=== PATIENT | female | born 1950 | race Caucasian/White ===

== ENCOUNTER 2020-05-02 08:01 | Outpatient (CLI) | payer MEDICARE, SELFPAY ==
--- NOTE | 2020-05-02 08:08 | MM_ITS ---
WS: [id number] BILATERAL DIGITAL SCREENING MAMMOGRAPHY WITH CAD CLINICAL INFORMATION: SCREENING HISTORY: Screening mammogram. No current complaints. COMPARISON: December 29, 2018 TECHNIQUE: Bilateral CC and MLO views. FINDINGS: The breasts are composed of heterogeneous fibroglandular density tissue, which can limit the detectio n of small underlying mass lesions. No suspicious mass, asymmetry, calcifications, or architectural d istortion. No evidence of malignancy. MM/[id number] IMPRESSION: BI-RADS: 1-Negative FOLLOW UP: 1 Year Follow-up Recommend return to annual screening mammography.
== END 2020-05-02 08:02 | disposition home or self-care (01) ==
LOC: RADSHAW 08:05
PROVIDERS: PCP Family Medicine; Visit Provider Family Medicine
DX: Z12.31 Encounter for screening mammogram for malignant neoplasm of breast (principal)
CPT/HCPCS: 77067

== ENCOUNTER 2021-05-03 14:27 | Outpatient (CLI) | payer MEDICARE, SELFPAY ==
--- NOTE | 2021-05-03 14:34 | MM_ITS ---
WS: [id number] SCREENING DIGITAL MAMMOGRAM WITH CAD HISTORY: SCREENING COMPARISON: 12/29/2018 05/02/2020 Bilateral CC and MLO views submitted. Computer aided detection analyzed. Breast composition: There are scattered areas of fibroglandular density. No suspicious masses, microc alcifications or architectural distortion. MM/[id number] IMPRESSION: BI-RADS: 1-Negative FOLLOW UP: 1 Year Follow-up
== END 2021-05-03 14:28 | disposition home or self-care (01) ==
LOC: RADSHAW 14:33
PROVIDERS: PCP Family Medicine; Visit Provider Family Medicine
DX: Z12.31 Encounter for screening mammogram for malignant neoplasm of breast (principal)
CPT/HCPCS: 77067

== ENCOUNTER 2021-05-13 15:38 | Emergency (ER) | payer MEDICARE, SELFPAY ==
[2021-05-13 15:47] VITALS: BP 156/90; PULSE 79; RESP 16; TEMP 36.7; O2SAT 92; BMI 24.2
--- NOTE | 2021-05-13 15:52 | ED_ITS ---
HPI - Dizziness General: Chief Complaint: Dizziness Stated Complaint: dizzy/vomiting Time Seen by Provider: 05/13/21 15:45 History of Present Illness: HPI Narrative: 70-year-old female presents emergency room complaining of onset of dizziness nausea and vomiting she been working outside for most of the day. No chest pain no shortness of breath denies dysuria urgency or frequency or abdominal pain. MD elicited complaint: dizziness and lightheadedness Onset (ago): hour(s) Timing: sudden onset Severity: mild Description: lightheadedness and off-balance History of similar symptoms: Yes Exacerbating factors: change in body position Relieving factors: remaining still, rest and lying down Associated symptoms: Reports malaise, nausea and weakness; Denies chest pain, chills, cough, diaphoresis, ear discharge, ear pressure, fevers/chills, headache(s), nasal congestion, palpitations, rash, short of breath, syncope, tinnitus or vomiting Associated neuro symptoms: Deny confusion, difficulty speaking, dysphagia, diplopia, extremity weakness, facial numbness, facial weakness, gait changes, numbness in extremities or visual changes Review of Systems Const: Reports: malaise; Denies: chills or diaphoresis ENMT: Denies: ear discharge, tinnitus or nasal congestion Card: Denies: chest pain, palpitations or syncope Resp: Denies: dyspnea, productive cough or non-productive cough GI: Reports: nausea; Denies: vomiting or dysphagia : Denies: flank pain, difficulty voiding, dysuria, urinary frequency or urinary urgency Skin/Breast: Denies: rash or pruritus Neuro: Denies: headache(s), numbness in extremities or confusion Physical Exam Const: COMMON NORMALS: no acute distress GENERAL APPEARANCE: cooperative and comfortable ORIENTATION/CONSCIOUSNESS: Yes awake, Yes oriented to person, Yes oriented to place and Yes oriented to time HENMT: COMMON NORMALS: normocephalic, atraumatic and hearing grossly normal bilaterally HEAD & SCALP: normocephalic and atraumatic Neck/C-Spine: COMMON NORMALS: no JVD Resp: COMMON NORMALS: normal respiratory effort, No retractions, No use of accessory muscles and clear to auscultation bilaterally AUSCULTATION: clear to auscultation bilaterally Cardio: COMMON NORMALS: no JVD, regular rate, regular rhythm and No murmurs present (Cardio) RATE: regular rate RHYTHM: regular rhythm GI: COMMON NORMALS: Soft to palpation and No hepatosplenomegaly present AUSCULTATION: Yes normoactive bowel sounds PALPATION: Yes Soft to palpation, No Tenderness to palpation present (GI), No Guarding due to palpation present (GI) and Yes No hepatosplenomegaly present Extremity: COMMON NORMALS: normal to inspection, capillary refill normal, no clubbing, cyanosis or edema, no calf tenderness and no pedal edema Neuro: SENSORIUM/ORIENTATION: Yes oriented to person, Yes oriented to place and Yes oriented to time Skin: COMMON NORMALS: no rashes or lesions noted GENERAL SKIN EXAM: no rashes or lesions noted Course Vital Signs: Vital signs: Vital Signs Temperature 98.0 F 05/13/21 15:47 Pulse Rate 81 05/13/21 18:15 Respiratory Rate 14 05/13/21 18:15 Blood Pressure 173/88 05/13/21 18:15 Pulse Oximetry 95 05/13/21 18:15 MDM - Dizziness MDM Narrative: Medical decision making narrative: Mild rhabdomyolysis with slightly elevated CPK. Encourage fluid intake rest. Reviewed labs with the patient. She is not on any diuretics at this point. She has any worsening or change symptoms return avoid heat for the next several days avoid excessive exertion. Return if she has further problems or chest pain. Lab Data: Labs: Lab Results 3 05/13/21 05/13/21 05/13/21 Range/Units 16:21 16:21 16:36 WBC 7.2 (4.0-10.0) 10^3/ uL RBC 5.20 (4.1-5.3) 10^6/u L Hgb 14.4 (11.5-15.3) g/dL Hct 44.0 (37.0-47.0) % MCV 84.6 (81-99) fl MCH 27.7 L (28.0-34.0) pg MCHC 32.7 (30.0-36.0) g/dL RDW 12.8 (12.1-15.1) % Plt Count 319 (130-400) 10^3/c mm MPV 9.7 (7.4-10.4) fL Neut % (Auto) 78.8 % Lymph % (Auto) 11.8 % [place] % (Auto) 7.0 % Eos % (Auto) 1.3 % Baso % (Auto) 0.8 % Neut # (Auto) 5.67 (1.8-7.7) 10^3/u L Lymph # (Auto) 0.9 (0.8-4.8) 10^3/u L [place] # (Auto) 0.5 (0.2-0.9) 10^3/u L Eos # (Auto) 0.1 (0.0-0.8) 10^3/u L Baso # (Auto) 0.1 (0.0-0.1) 10^3/u L Nucleated RBC % (a uto) 0 % Nucleated RBCs # 0.0 /100WBC Sodium 142 (136-145) mmol/L Potassium 4.1 (3.5-5.1) mmol/L Chloride 105 (98-107) mmol/L Carbon Dioxide 26 (22-29) mmol/L Anion Gap 15.1 (5-19) BUN 25 H (8-23) mg/dL Creatinine 0.7 (0.5-0.9) mg/dL GFR Calculation Not Reportable Glucose 100 (65-115) mg/dL Calculated Osmolal ity 298 H (285-295) mOsm/k g Calcium 9.0 (8.5-10.5) mg/dL Total Bilirubin 0.2 (0.15-1.2) mg/dL AST 20 (0-32) U/L ALT 21 (0-33) U/L Alkaline Phosphata se 74 (35-105) IU/L Creatine Kinase 478 H* (26-192) U/L Total Protein 6.3 L (6.6-8.7) g/dL Albumin 4.4 (3.5-5.2) g/dL Globulin 1.9 (1.3-4.6) g/dL Lipase 44 (13-60) U/L Urine Color Yellow (Yellow) Urine Appearance Clear (CLEAR) Urine pH 5 (5-7) Ur Specific Gravit y 1.025 (1.005-1.030) Urine Protein Neg (Negative) Urine Glucose (UA) Norm (Normal) Urine Ketones Negative (Negative) Urine Blood Neg (Negative) Urine Nitrate Negative (Negative) Urine Bilirubin Neg (Negative) Urine Urobilinogen Norm (Negative) mg/dL Ur Leukocyte Vernell ase Negative (Negative) Discharge Plan Discharge Patient Disposition: Home Clinical Impression: Rhabdomyolysis, Orthostasis Condition: Stable Prescriptions: New Zofran 4 mg tablet 4 mg PO Q6H PRN (Reason: nausea and vomiting) Qty: 15 RF: 0 No Action multivitamin Tablet 1 tab PO DAILY RF: 0 garlic 100 mg Tablet 100 mg PO DAILY RF: 0 Vitamin C 250 mg Tablet 250 mg PO DAILY RF: 0 [place] 3 Fish Oil Capsule 1,500 mg PO DAILY RF: 0 [id number]-fctgqetnm-wzxo 333-133-5 mg Tablet 1 tab PO DAILY RF: 0 Vitamin D3 25 mcg (1,000 unit) Tablet,Chewable 25 mcg PO DAILY RF: 0 Red Rice Yeast 1 tab PO DAILY RF: 0 Discharge Orders: Discharge ED (Routine); Ordered 05/13/21 Ordered By: Kike Garner Referrals: Blake Bourgeois MD [Primary Care Provider] - Discharge Diet: Clear Liquid Discharge Activity: Limit activity as instructed Patient Instructions: Opioid Safety Activity Restrictions/Additional Instructions: Increase fluid intake and avoid heat for the next week. Coding Level of Care Code ED Jr. Systems Administrator for [facility] Exam Comprehensive
[2021-05-13 16:32] VITALS: BP 159/82; PULSE 77; RESP 18; O2SAT 93
[2021-05-13 16:40] LABS: Basophils # 0.1 10^3/uL (0.0-0.1); Basophils % 0.8 %; Eosinophils # 0.1 10^3/uL (0.0-0.8); Eosinophils % 1.3 %; Hemoglobin 14.4 g/dL (11.5-15.3); Lymphocytes # 0.9 10^3/uL (0.8-4.8); Lymphocytes % 11.8 %; Mean Corpuscular HGB Conc 32.7 g/dL (30.0-36.0); Mean Corpuscular Hemoglobin 27.7 pg (28.0-34.0); Mean Corpuscular Volume 84.6 fl (81-99); Mean Platelet Volume 9.7 fL (7.4-10.4); Monocytes # 0.5 10^3/uL (0.2-0.9); Neutrophils # 5.67 10^3/uL (1.8-7.7); Neutrophils % 78.8 %; Nucleated Red Blood Cells % 0 %; Platelet Count 319 10^3/cmm (130-400); Red Cell Distribution Width 12.8 % (12.1-15.1); White Blood Count 7.2 10^3/uL (4.0-10.0)
[2021-05-13] MEDS: sodium chloride 0.9% 1,000 ML 999 ML IV (16:46)
[2021-05-13 17:04] LABS: Alanine Aminotransferase 21 U/L (0-33); Albumin Level 4.4 g/dL (3.5-5.2); Alkaline Phosphatase 74 IU/L (35-105); Anion Gap 15.1 (5-19); Aspartate Amino Transferase 20 U/L (0-32); Blood Urea Nitrogen 25 mg/dL (8-23); Carbon Dioxide 26 mmol/L (22-29); Chloride 105 mmol/L (98-107); Globulin 1.9 g/dL (1.3-4.6); Glucose 100 mg/dL (65-115); Lipase 44 U/L (13-60); Osmolality Calculated 298 mOsm/kg (285-295); Potassium 4.1 mmol/L (3.5-5.1); Sodium 142 mmol/L (136-145); Total Bilirubin 0.2 mg/dL (0.15-1.2); Total Protein 6.3 g/dL (6.6-8.7)
[2021-05-13 17:08] LABS: Add Urine Microscopic? NO; Charge for UA Resulting for Rev
[2021-05-13 17:09] LABS: Creatine Phosphokinase 478 U/L (26-192)
[2021-05-13 17:26] VITALS: BP 189/76; PULSE 76; RESP 17; O2SAT 96
[2021-05-13 17:33] LABS: Bilirubin Urine Neg (Negative); Blood Urine Neg (Negative); Glucose Urine UA Norm (Normal); Ketones Urine Negative (Negative); Leukocyte Esterase Urine Negative (Negative); Nitrate Urine Negative (Negative); Protein Urine Neg (Negative); Specific Gravity, Urine 1.025 (1.005-1.030); Urine Appearance Clear (CLEAR); Urine Color Yellow (Yellow); Urobilinogen Urine Norm (Negative); pH Urine 5 (5-7)
[2021-05-13 18:15] VITALS: BP 173/88; PULSE 81; RESP 14; O2SAT 95
== END 2021-05-13 18:14 | disposition home or self-care (01) ==
PROVIDERS: Emergency Provider Family Medicine; PCP Family Medicine
DX: M62.82 Rhabdomyolysis (principal); I95.1 Orthostatic hypotension
CPT/HCPCS: 80053; 81003; 82550; 83690; 85025; 96360; 99283; J7030

== ENCOUNTER 2021-08-13 02:06 | Observation (INO) | payer MEDICARE, SELFPAY ==
[2021-08-13] VITALS (7 sets, daily range): BP systolic 120–156; BP diastolic 61–81; PULSE 72–99; RESP 14–18; TEMP 36.4–37.1; O2SAT 94–98; BMI 24.2
--- NOTE | 2021-08-13 02:18 | XRR_ITS ---
PROCEDURE INFORMATION: Exam: XR Chest Exam date and time: 08/13/2021 2:18 AM Age: 70 years old Clinical indication: Dyspnea TECHNIQUE: Imaging protocol: XR of the chest. Views: 1 view. Total images: 1 COMPARISON: No relevant prior studies available. FINDINGS: Lungs: Unremarkable. No consolidation. Pleural spaces: Unremarkable. No pleural effusion. No pneumothorax. Heart/Mediastinum: Unremarkable. No cardiomegaly. Vasculature: Atherosclerosis is evident. Bones/joints: Mild AC joint space narrowing and minimal osteophyte formation. XR/XR chest 1V portable [id number] IMPRESSION: No acute cardiopulmonary process. Radiation Dose CTDIVOL = (mGy): DLP = (mGy-cm)
--- NOTE | 2021-08-13 02:19 | ECG_ITS ---
[facility] Test Date: 2021-08-13 Pat Name: Katya Sal Department: Room: Gender: Female Supervisor Veneer: : 1950 Requested By: Michaela Cochran Order Number: [id number] Rashid MD: Luiza Holliday M.D. Measurements Intervals [place] Rate: 80 P: 51 PA: 167 QRS: 3 QRSD: 70 T: 73 QT: 388 QTc: 450 Interpretive Statements SINUS RHYTHM POSSIBLE LEFT ATRIAL ENLARGEMENT [-0.1mV P-WAVE IN V1/V2] NONSPECIFIC T-WAVE ABNORMALITY No previous ECG available for comparison Electronically Signed On 08-13-2021 21:54:18 PRODUCTION SKI REPAIRER by Luiza Holliday M.D. [id number]
[2021-08-13 04:56] LABS: Basophils # 0.1 10^3/uL (0.0-0.1); Basophils % 0.7 %; Eosinophils # 0.2 10^3/uL (0.0-0.8); Eosinophils % 2.9 %; Hematocrit 42.8 % (37.0-47.0); Hemoglobin 14.5 g/dL (11.5-15.3); Lymphocytes # 0.8 10^3/uL (0.8-4.8); Lymphocytes % 9.5 %; Mean Corpuscular HGB Conc 33.9 g/dL (30.0-36.0); Mean Corpuscular Hemoglobin 27.9 pg (28.0-34.0); Mean Corpuscular Volume 82.5 fl (81-99); Mean Platelet Volume 10.1 fL (7.4-10.4); Monocytes # 0.6 10^3/uL (0.2-0.9); Monocytes % 7.3 %; Neutrophils # 6.68 10^3/uL (1.8-7.7); Neutrophils % 79.5 %; Nucleated Red Blood Cells % 0 %; Platelet Count 313 10^3/cmm (130-400); Red Blood Count 5.19 10^6/uL (4.1-5.3); Red Cell Distribution Width 12.8 % (12.1-15.1); White Blood Count 8.4 10^3/uL (4.0-10.0)
[2021-08-13 05:21] LABS: Troponin(5th) Baseline 8 ng/L (0-10)
[2021-08-13 05:31] LABS: Anion Gap 19.3 (5-19); Blood Urea Nitrogen 17 mg/dL (8-23); Calcium 9.2 mg/dL (8.5-10.5); Carbon Dioxide 24 mmol/L (22-29); Chloride 100 mmol/L (98-107); Glucose 102 mg/dL (65-115); NT Pro B Type Natriuretic Pept 112 pg/mL (0-125); Osmolality Calculated 290 mOsm/kg (285-295); Potassium 4.3 mmol/L (3.5-5.1); Sodium 139 mmol/L (136-145)
[2021-08-13] MEDS: aspirin 325 mg Tablet PO (05:38)
[2021-08-13] MEDS: nitroglycerin 1 gm/inch oint Pkt 0.5 INCH TOPICAL (05:38)
--- NOTE | 2021-08-13 05:50 | W.ED.GENADLT ---
HPI - General Adult General: Chief complaint: Chest Pain Stated complaint: Sob Chest Pain Time Seen by Provider: 08/13/21 03:58 History of Present Illness: HPI narrative: CC: Chest Pain HPI: This is a [70] yo patient hx of HTN, HLD presenting to the ED w/ new acute onset intermittent substernal chest pain x 1 day after racking leaves. She has shortness of breath worse with exertion for the last 3 days. Pain is not tearing in nature and does not radiate to the back. Endorse nausea but has no associated with vomiting or decreased PO intake. Denies any recent sympathomimetic drug use. Patient denies any cough. Denies palpitations, syncope symptoms. Pain not positional. Norecent immobility, surgery, unilateral leg swelling, or prior PE. Patient denies any orthopnea, paroxysmal nocturnal dyspnea, weight gain, or increased leg swellings. Onset: 1 day ago Duration: ongoing for the last 1 days Location: home Severity: moderate Review of Systems Narrative: Constitutional: No fever, no chills. HEENT: No vision changes, no sore throat. CV: +chest pain, no palpitations. PULM: No cough, +dyspnea. GI: No abdominal pain, no N/V/D. : No dysuria, no frequency, no hematuria. MSKEL: No arthralgias, no edema. SKIN: No new rashes, no lesions. NEURO: No headache, no focal weakness. HEME: No easy bleeding or bruising. PSYCH: No change in mood or affect. Physical Exam Narrative: EXAM NARRATIVE: Head: Atraumatic, normocephalic Eyes: PERRL, EOMI, conjunctiva without injection ENT: Throat without erythema, lesions or exudate, MMM NECK: Supple, trachea midline, no JVD LUNGS: LCTA CV: RRR, S1,S2, no murmurs, rubs, gallops. 2+ peripheral pulses in UEs ABDOMEN: Soft, nontender, nondistended, BS x4, no rigidity, no guarding, no rebound EXTREMITY: Normal ROM, no pitting edema, no calf tenderness to palpation SKIN: No rash or erythema NEURO: Awake and alert. No focal motor deficits. PSYCH: Normal mood and affect. Course Vital Signs: Vital signs: Vital Signs Temperature 97.8 F 08/13/21 02:17 Pulse Rate 84 08/13/21 02:17 Respiratory Rate 18 08/13/21 02:17 Blood Pressure 155/68 08/13/21 02:17 Pulse Oximetry 97 08/13/21 02:17 MDM - General Adult MDM Narrative: Medical decision making narrative: [70]yo patient w/ hx of HLD, HTN presenting to the ED With acute substernal chest pain X 1 day Given History And Exam today I have moderate to high suspicion for ACS/UA/NSTEMI. Today, I have NO suspicion for pneumothorax, pneumonia, pulmonary embolus, tamponade, aortic dissection or other emergent problem as a cause for this presentation. ECG did not show any signs of acute STEMI. Workup: ECG, CXR, CBC, BMP, Troponin Intervention: ASA 325mg, SL nitroglycerin Findings: ECG: No overt evidence of STEMI, no hyperacute T waves, localizable STD or T wave inversions. No evidence of Brugada?s sign, delta wave, epsilon wave, significantly prolonged QTc, or malignant arrhythmia. No Q waves. Troponin: Negative x 1 Other Labs unremarkable for emergent problems. CXR: Without PTX, PNA, or widened mediastinum HEART score: 4 (age -1 , story - 2, [5:52] On reassessment, the patient is currently chest pain free. S/p aspirin 325mg. I have patient outpatient work-up with cardiology versus inpatient hospitalization. Given therefore, have recommended inpatient mission patient agrees with plan for echo and stress test. HDS, AAOx3, no signs of respiratory distress, without refractory chest pain, no signs of malignant dysrhythmia on director digital catalogue (VT/VF). Disposition: Inpatient admission. Lab Data: Labs: Lab Results 08/13/21 08/13/21 08/13/21 04:05 04:05 04:05 WBC 8.4 10^3/uL 10^3/ uL (4.0-10.0) RBC 5.19 10^6/uL 10^6 /uL (4.1-5.3) Hgb 14.5 g/dL g/dL (11.5-15.3) Hct 42.8 % % (37.0-47.0) MCV 82.5 fl fl (81-99) MCH 27.9 pg L pg (28.0-34.0) MCHC 33.9 g/dL g/dL (30.0-36.0) RDW 12.8 % % (12.1-15.1) Plt Count 313 10^3/cmm 10^3 /cmm (130-400) MPV 10.1 fL fL (7.4-10.4) Neut % (Auto) 79.5 % % Lymph % (Auto) 9.5 % % [place] % (Auto) 7.3 % % Eos % (Auto) 2.9 % % Baso % (Auto) 0.7 % % Neut # (Auto) 6.68 10^3/uL 10^3 /uL (1.8-7.7) Lymph # (Auto) 0.8 10^3/uL 10^3/ uL (0.8-4.8) [place] # (Auto) 0.6 10^3/uL 10^3/ uL (0.2-0.9) Eos # (Auto) 0.2 10^3/uL 10^3/ uL (0.0-0.8) Baso # (Auto) 0.1 10^3/uL 10^3/ uL (0.0-0.1) Nucleated RBC % (a uto) 0 % % Nucleated RBCs # 0.0 /100WBC /100W BC Sodium 139 mmol/L mmol/L (136-145) Potassium 4.3 mmol/L mmol/L (3.5-5.1) Chloride 100 mmol/L mmol/L (98-107) Carbon Dioxide 24 mmol/L mmol/L (22-29) Anion Gap 19.3 H (5-19) BUN 17 mg/dL mg/dL (8-23) Creatinine 0.6 mg/dL mg/dL (0.5-0.9) GFR Calculation Not Reportable Glucose 102 mg/dL mg/dL (65-115) Calculated Osmolal ity 290 mOsm/kg mOsm/ kg (285-295) Calcium 9.2 mg/dL mg/dL (8.5-10.5) Troponin T Baselin e 8 ng/L ng/L (0-10) NT-Pro-B Natriuret Pep 112 pg/mL pg/mL (0-125) Imaging Data^: Other Imaging: Radiologist's impression: [email or web address] [id number] ReportSigned Patient: Katya Sal #: [id number]: 1950Acct#:[id number]/Sex: 70 / FADM Date: 08/13/21Loc: ERRoom/Bed:Attending Dr: Ordering Provider/Ordering MD: Michaela Cochran MD Date of Service: 08/13/21 Procedure(s): XR chest 1V portable [id number] Accession Number(s): [id number] Report Number: [id number] PROCEDURE INFORMATION: Exam: XR Chest Exam date and time: 08/13/2021 2:18 AM Age: 70 years old Clinical indication: Dyspnea TECHNIQUE: Imaging protocol: XR of the chest. Views: 1 view. Total images: 1 COMPARISON: No relevant prior studies available. FINDINGS: Lungs: Unremarkable. No consolidation. Pleural spaces: Unremarkable. No pleural effusion. No pneumothorax. Heart/Mediastinum: Unremarkable. No cardiomegaly. Vasculature: Atherosclerosis is evident. Bones/joints: Mild AC joint space narrowing and minimal osteophyte formation. XR/XR chest 1V portable [id number] IMPRESSION: No acute cardiopulmonary process. Radiation Dose CTDIVOL = (mGy): DLP = (mGy-cm) Dictated By:Fito Dudley MDSigned By:Fito Dudley MDSigned Date/Time:08/13/21 0551DD/ 0218 Discharge Plan Discharge Patient Disposition: Admitted As Inpatient Clinical Impression: Chest pain Condition: Stable Coding Level of Care Code ED Mailing Machine Helper for [facility]
[2021-08-13 07:22] LABS: Troponin 5 2HR 6.91 ng/L (0-10)
[2021-08-13 07:25] LABS: Troponin 5 2HR Delta -1.09 ABS# (0-10)
--- NOTE | 2021-08-13 08:51 | ECG_ITS ---
[facility] Test Date: 2021-08-14 Pat Name: Katya Sal Department: Room: 252 Gender: Female Copy Technician: : 1950 Requested By: Leo Rawls Order Number: [id number] Rashid MD: Luiza Holliday M.D. Interpretive Statements NAME OF STUDY: LEXISCAN SESTAMIBI STRESS TEST INDICATION: Chest Pain, PROCEDURE: At the baseline, the EKG revealed normal sinus rhythm with a poor R wave progression. The baseline blood pressure was 116/88 mm Hg with a heart rate of 79 beats/min. Lexiscan was infused over a period of 20 seconds. A total of 0.4 milligrams of Lexiscan was infused. The stress phase was continued for a total of 5 minutes. Heart rate at the end of the stress phase was 86 with a blood pressure 89/64. The EKG at the peak infusion revealed no significant changes. Sestamibi was injected 20 seconds after the Lexiscan infusion. Blood pressure at the end of the recovery phase was 109/64 with a heart rate of 109 per minute. CONCLUSION: 1. No significant EKG changes with the LexiScan infusion 2. No LexiScan induced chest pain or cardiac arrhythmia 3. Normal blood pressure and heart rate response 4. Sestamibi/sestamibi perfusion scan pending; see separate report. Electronically Signed On 08-18-2021 20:50:41 MAINTENANCE SERVICE DISPATCHER by Luiza Holliday M.D. [id number]
--- NOTE | 2021-08-13 08:51 | USCV_ITS ---
Katya Sal Age: 70 Gender: F : 1950 Exam Date: 08/13/2021 09:43 Ordering Phys: Leo Martinez MD Technologist: Maura Overton [place] [facility] [place]ication: CHEST PAIN BP: 109 / 55 HR: 88 Rhythm: Sinus Technical Quality: Adequate MEASUREMENTS (Male / Female) Normal Values 2D ECHO LV Diastolic Diameter PLAX 4.3 cm 4.2 - 5.9 / 3.9 - 5.3 cm LV Systolic Diameter PLAX 2.7 cm IVS Diastolic Thickness 1.2 cm 0.6 - 1.0 / 0.6 - 0.9 cm IVS Systolic Thickness 1.8 cm LVPW Diastolic Thickness 1.4 cm 0.6 - 1.0 / 0.6 - 0.9 cm LVPW Systolic Thickness 1.9 cm LVOT Diameter 2.0 cm LV Ejection Fraction 2D Teich 65.6 % LV Ejection Fraction MOD 2C 58.3 % LV Ejection Fraction 2C AL 58.7 % LA Diameter 3.1 cm LA Width 2.7 cm LA Height 4.7 cm RA Width 3.1 cm RA Height 4.5 cm Aorta at Sinotubular Diameter 2.2 cm M-MODE Aortic Annulus Diameter 2.7 cm LA Ao Ratio MM 1.2 MV E Point Septal Separation 0.3 cm DOPPLER AV Peak Velocity 170.0 cm/s LVOT Peak Velocity 137.0 cm/s AV Area Cont Eq vti 2.6 cm squared AV Area Cont Eq pk 2.6 cm squared MV Peak Velocity 115.0 cm/s MV Area PHT 3.7 cm squared Mitral E to A Ratio 0.8 MV E' Velocity 41.0 cm/s Mitral E to MV E' Ratio 11.4 Mitral E to LV E' Lateral Ratio 10.1 Mitral E to LV E' Septal Ratio 13.2 TR Peak Velocity 252.8 cm/s TR Peak Gradient 25.6 mmHg TR Mean Velocity 252.6 cm/s TR Mean Gradient 25.4 mmHg TR Velocity Time Integral 77.9 cm TV Peak E Velocity 65.0 cm/s Right Atrial Pressure 3.0 mmHg Pulmonary Artery Systolic Pressu 28.6 mmHg PV Peak Velocity 142.0 cm/s RV Acceleration Time 0.1 s RV Ejection Time 0.3 s RV AcT/ET 0.5 FINDINGS Left Ventricle Normal left ventricular size and systolic function, EF 64 %. Mild left ventricular hypertrophy. No regional wall motion abnormalities. Grade I/IV diastolic dysfunction (abnormal relaxation filling pattern), normal to mildly elevated filling pressures. Right Ventricle The right ventricle is normal in size and function. Right Atrium The right atrium is normal in size. Left Atrium Mildly increased left atrial size. Mitral Valve Trace mitral valve regurgitation. Aortic Valve Thickened aortic valve. Tricuspid Valve Trace tricuspid valve regurgitation. Pulmonic Valve No pulmonic regurgitation. Pericardium Normal pericardium without effusion. Aorta Normal ascending aorta dimension. CONCLUSIONS Normal left ventricular size and systolic function, EF 64 %. Mild left ventricular hypertrophy. No regional wall motion abnormalities. Grade I/IV diastolic dysfunction (abnormal relaxation filling pattern), normal to mildly elevated filling pressures. Mildly increased left atrial size. Trace of mitral and tricuspid regurgitation Features of aortic valve sclerosis There is no pericardial effusion. There are no intracardiac masses. No previous study is available for comparison. Dr Luiza Holliday MD FACC (Electronically Signed) Final Date: 13 August 2021 19:39 S
--- NOTE | 2021-08-13 08:54 | P.HP_ITS ---
Providers/Chief Complaint Admitting Physician: Diamond Zepeda MD Primary Care Provider: Blake Bourgeois MD Chief Complaint: Sob Chest Pain History of Present Illness Katya Sal is a 70 year old female who presented to the emergency department with shortness of breath and chest discomfort. She states that this was in the lower left part of her chest, and has since gone away. It started last night. She reports she still feels short of breath especially with exertion and feels like she needs to take a deep breath frequently. She has no cough, runny nose, fever or any other symptoms. She reports no prior history of coronary disease. She states she has reflux on occasion. Discomfort does not radiate. She believes it may have a slight pleuritic quality to it when she takes a deep breath. She did rake leaves for quite a while yesterday and is not sure if this contributed, but is sure she does not have any worsening pain with movement. Review of Systems General: Reports: 10 or more systems reviewed and unremarkable except in HPI and below Const: Denies: fever(s) or chills Eyes: Denies: change in vision ENMT: Denies: throat pain Card: Reports: chest pain and dyspnea on exertion Resp: Reports: dyspnea GI: Reports: heartburn; Denies: abdominal pain, nausea or vomiting : Denies: flank pain Musc: Denies: neck pain Skin/Breast: Denies: rash Neuro: Denies: headache(s) Psych: Denies: anxiety or depression Endo: Denies: polyuria Moo/Lymph: Denies: easy bruising All/Imm: Denies: urticaria Medications/Allergies Home Medications Medication Instructions Recorded Confirmed Last Taken Type Red Rice Yeast 1 tab PO DAILY 05/13/21 05/13/21 05/13/21 History ascorbic acid (vitamin C) [Vitamin 250 mg PO DAILY 05/13/21 05/13/21 05/12/21 History C] qddbbjz-xczpkkamc-lzng 1 tab PO DAILY 05/13/21 05/13/21 05/13/21 History cholecalciferol (vitamin D3) 25 mcg PO DAILY 05/13/21 05/13/21 05/13/21 History [Vitamin D3] garlic 100 mg PO DAILY 05/13/21 05/13/21 05/12/21 History multivitamin 1 tab PO DAILY 05/13/21 05/13/21 05/13/21 History omega-3 fatty acids [[place] 3 Fish 1,500 mg PO DAILY 05/13/21 05/13/21 05/13/21 History Oil] ondansetron HCl [Zofran] 4 mg PO Q6H PRN #15 tab 05/13/21 Unknown Rx Allergies Allergy/AdvReac Type Severity Reaction Status Date / Time No Known Allergies Allergy Verified 05/13/21 15:50 PFSH Acute PFSH: Medical History (Updated 08/13/21 @ 10:34 by Leo Martinez MD) Hyperlipidemia Family History (Updated 08/13/21 @ 10:29 by Leo Martinez MD) Other CAD (coronary artery disease) Dementia Social History (Updated 08/13/21 @ 10:29 by Leo Martinez MD) Smoking and tobacco status: never smoked Alcohol intake: never Supplemental PFSH Information: No significant surgical history Vitals/I&O/Wt Last Vital Signs Temp 97.8 F 08/13/21 02:17 Pulse 82 08/13/21 07:17 Resp 14 08/13/21 07:17 BP 156/81 08/13/21 07:17 Pulse Ox 95 08/13/21 07:17 Weight last 48 hrs Weight 68.039 kg Physical Exam Narrative: EXAM NARRATIVE: General exam no distress HEENT: Atraumatic normocephalic. Pupils equally round. Oropharynx clear. Neck is supple no lymphadenopathy thyromegaly Cardiovascular regular rate and rhythm with 2/6 systolic murmur heard best in the aortic area, no S3 or S4. Chest without any pain to palpation Lungs clear no wheezing or crackles Abdomen is soft with positive bowel sounds. No obvious organomegaly. exam is deferred Extremities no cyanosis clubbing or edema, cap refill brisk Skin no rash Neuro no focal deficits. Data : 08/13/21 04:05 08/13/21 04:05 Other data: EKG normal sinus rhythm, borderline left axis deviation, likely left atrial enlargement Dimer elevated at 0.75 Troponin 6.91 at 120 minutes, 8 at baseline TSH 2.74 Chest x-ray no infiltrate A&P Assessment and plan (1) Chest pain: Observation Somewhat atypical. Currently she reports she is more short of breath, and it seems to have a slight pleuritic quality to it. She has already been given an aspirin TSH has been checked and normal D-dimer has been checked and slightly elevated. Will check venous duplex lower extremities as well as CTA of chest Nuclear stress test ordered for tomorrow Echocardiogram Status: Acute Additional A&P Information History of hyperlipidemia. Currently using supplements. History of reflux. Initiate Protonix. Full code Lovenox for DVT prophylaxis Attestations Medical Necessity Statement*: Will need less than 2 midnight stay for evaluation of chest discomfort with elevated dimer Time Spent in Patient Care: Greater than 35 minutes Coding Level of Care Code Acute Photographic Process Attendant for [facility] Diagnoses Chest pain R07.9
[2021-08-13] MEDS: enoxaparin 40 mg/0.4 mL Syringe SUBCUT (09:19)
[2021-08-13] MEDS: pantoprazole DR 40 mg Tablet PO (09:19)
[2021-08-13 09:22] LABS: D Dimer 0.75 ug/mIFEU (0-0.59)
[2021-08-13 09:41] LABS: Thyroid Stimulating Hormone 2.74 uIU/mL (0.27-4.20)
--- NOTE | 2021-08-13 10:33 | CT_ITS ---
WS: [id number] CTA OF THE CHEST WITH PULMONARY EMBOLISM PROTOCOL TECHNIQUE: High-resolution contrast enhanced CTA of the chest with coronal and sagittal reformatted i mages with pulmonary embolism protocol. MIP images are also reviewed. CLINICAL INFORMATION: elevated dimer COMPARISON: None. DLP: 1071.[address] scans at [facility] use at least one of these dose optimization techniques: automated e xposure control; mA and/or kV adjustment per patient size (includes targeted exams where dose is matc hed to clinical indication); or iterative reconstruction. FINDINGS: Proximal main pulmonary arteries are normal. Normal segmental and subsegmental pulmonary arteries. No evidence of pulmonary embolus. Mild chronic emphysematous changes. No acute pulmonary infiltrates. No focal pneumonia. Slight atelec tasis in the lung bases. Trace pleural effusions. Normal caliber thoracic aorta. No mediastinal or hi lar lymphadenopathy. No axillary lymphadenopathy. Adrenal glands are normal. Enhancing left upper pole renal lesion is not definitely cystic and renal neoplasm not excluded. Recommend further evaluation with ultrasound. This measures approximately 2.[address]/CT angio chest PE protcl [id number] IMPRESSION: 1. No evidence of pulmonary embolus. 2. Enhancing left upper pole renal lesion may represent a complex cyst or dakota d renal neoplasm. This measures 2.8 x 2.5 CM. Recommend renal ultrasound. 3. Both lungs are well aerated. No acute pulmonary infiltrates. 4. Trace pleural fluid and slight atelectasis in the lung bases. 5. Small esophageal hiatal hernia.
--- NOTE | 2021-08-13 10:35 | USCV_ITS ---
Katya Sal Age: 70 Gender: F : 1950 Exam Date: 08/13/2021 14:14 Ordering Phys: Leo Martinez MD Technologist: Maura Overton [place] [facility] [place] Indication: ELEVATED D DIMER HISTORY: ELEVATED D DIMER PROCEDURES: Venous duplex imaging was performed in bilateral lower extremities. The following venous structures were evaluated: common femoral vein, profunda vein, proximal portion of the greater saphenous vein, superficial femoral vein, and the popliteal vein. In addition, the posterior tibial and peroneal trunk were evaluated. Serial compression, augmentation maneuvers, and spectral Doppler flow evaluation were performed. FINDINGS: No evidence of DVT seen in any vessel visualized at this time. CONCLUSIONS No evidence of right lower extremity DVT. No evidence of left lower extremity DVT. Ryan Barr MD (Electronically Signed) Final Date: 13 August 2021 17:02 S
[2021-08-13] MEDS: acetaminophen 325 mg Tablet 650 MG PO (11:01)
[2021-08-13 11:02] LABS: Troponin 5 6HR 6.73 ng/L (0-10)
[2021-08-13 11:05] LABS: Troponin 5 6HR Delta -1.27 ng/L (0-12)
[2021-08-13] MEDS: iohexol 350 mg/mL 100 mL Btl IV (11:42)
[2021-08-14] VITALS: BP 133/70; PULSE 76; RESP 16; TEMP 36.7; O2SAT 94
--- NOTE | 2021-08-14 00:45 | PC.NURSE ---
TRANSFER ROOMS: THE PATIENT TRANSFERRED TO ROOM 252-2.
[2021-08-14 03:59] VITALS: BP 109/71; PULSE 85; RESP 18; TEMP 36.4; O2SAT 95
[2021-08-14 05:29] LABS: Basophils % 0.5 %; Eosinophils # 0.2 10^3/uL (0.0-0.8); Eosinophils % 2.2 %; Hematocrit 42.8 % (37.0-47.0); Hemoglobin 13.6 g/dL (11.5-15.3); Lymphocytes # 0.7 10^3/uL (0.8-4.8); Lymphocytes % 8.2 %; Mean Corpuscular HGB Conc 31.8 g/dL (30.0-36.0); Mean Corpuscular Hemoglobin 26.9 pg (28.0-34.0); Mean Corpuscular Volume 84.6 fl (81-99); Monocytes # 0.5 10^3/uL (0.2-0.9); Monocytes % 5.5 %; Neutrophils # 6.81 10^3/uL (1.8-7.7); Neutrophils % 83.2 %; Nucleated Red Blood Cells % 0 %; Platelet Count 324 10^3/cmm (130-400); Red Blood Count 5.06 10^6/uL (4.1-5.3); Red Cell Distribution Width 12.7 % (12.1-15.1); White Blood Count 8.2 10^3/uL (4.0-10.0)
[2021-08-14 06:11] LABS: Blood Urea Nitrogen 15 mg/dL (8-23); Calcium 8.4 mg/dL (8.5-10.5); Carbon Dioxide 22 mmol/L (22-29); Chloride 104 mmol/L (98-107); Glucose 119 mg/dL (65-115); Osmolality Calculated 290 mOsm/kg (285-295); Sodium 139 mmol/L (136-145)
[2021-08-14] MEDS: ondansetron 2 mg/ML SDV 2 mL 4 MG IVP ×2 (08:06→08:14)
[2021-08-14] MEDS: regadenoson 0.4 Mg/5 ml Syringe IVP (08:06)
[2021-08-14 08:33] VITALS: BP 109/64; PULSE 99
--- NOTE | 2021-08-14 08:53 | NMCV_ITS ---
NM wade perf SPECT r/s* [id number] Katya Sal Age: 70 Gender: F : 1950 Exam Date: 08/14/2021 07:22 Ordering Phys: Leo Martinez MD Technologist: FOREIGN Mae Exam Location: [facility] [address] Indications: SOB CHEST PAIN STRESS TEST Please see separate stress test report in [facility] for full findings IMAGE PROTOCOL Rest/Stress 1 Lexiscan Day Radiopharmaceutical Dose (mCi) Administration Site Administered by Rest: Tc-99m 10.6 IV FOREIGN Wolfe Sestamibi Stress:Tc-99m 32.7 IV FOREIGN Wolfe Sestamibi Rest: 14-Aug-2021 60 Discovery 630 Stress: 14-Aug-2021 30 Discovery 630 0.4mg Lexiscan. Images obtained in supine and prone position. SPECT RESULTS Technical Quality: Excellent Raw Data Analysis: Normal Image Corrections: No attenuation or motion correction applied Summed Stress Score: 2 Summed Rest Score: 6 Summed Difference Score: 1 PERFUSION FINDINGS Patchy areas of decreased tracer uptake in the inferior, inferolateral and anterior wall regions. No significant reversibility was noted in these regions. FUNCTIONAL RESULTS (calculated via Gated SPECT) Stress Image LV EF (%): 76 Stress EDV (mL):70 TID: 0.91 Stress ESV (mL):17 FUNCTIONAL FINDINGS: Segmental wall motion analysis revealing no gross wall motion normalities. IMPRESSIONS 1. Myocardial perfusion imaging revealing patchy areas of persistent decreased tracer uptake in the inferior, inferolateral and anterior wall regions, most likely represent attenuation artifacts. 2. Normal LV ejection fraction 76%. 3. LV wall motion analysis revealing no gross wall motion abnormalities. 4. Normal LV volume. No significant coronary ischemia, based on the above findings Dr Luiza Holliday MD [facility] (Electronically Signed) Final Date: 14 August 2021 11:59 S
[2021-08-14] MEDS: pantoprazole DR 40 mg Tablet PO (09:15)
[2021-08-14] MEDS: aspirin 325 mg EC Tablet PO (09:15)
[2021-08-14] MEDS: enoxaparin 40 mg/0.4 mL Syringe SUBCUT (09:15)
--- NOTE | 2021-08-14 09:15 | PC.CHAP ---
Pastoral Care Encounter/Spiritual Assessment Type of Contact [] Declined prosthetic lab technician visit [] Patient/Family/Request visit [] Outpatient visit [] Follow-up visit [] Physician referral [] Code/Alert [x] Routine visit [] Staff referral [] Actively dying [] Patient sleeping [] Family support [] [x] Out of room [] Palliative care [] [] Receiving care in room [] Pre-surgical visit [] Trauma [] Long length of stay [] ICU visit [] Other: Relational/Emotional Strength [] Patient feels connected with others/family/visitors/staff [] Distress [] Loneliness/isolation [] Abandonment Spirituality of Patient [] Person of Bruna [] Attends Roman Catholic of their Bruna [] Believes in Prayer [] Reads Bible or Buddhist materials [] There are Spiritual issues to be addressed Show Operations Supervisor Interventions [] Prayer [] Active listening [] Non-anxious presence [] Spiritual/emotional support [] Crisis/trauma care [] Spiritual counseling [] Bereavement support [] Provided bereavement packet [] Provided Bible/devotional materials [] Provided toy/stuffed animal, coloring book to patient or family member [] Provided Communion [] Anointing/[place] [] Salvation [] Completed spiritual assessment [] Other: Impact on Illness or Injury [] Angry [] Fearful [] Anxious [] Often cries [] Exhaustion [] Unable to work [] Unable to attend orthodox [] Unable to walk/stand [] Unable to read [] Unable to drive [] Unable to eat/drink [] Unable to sleep [] Unable to be with family [] Patient intubated [] Other: Summary Time spent with patient
[2021-08-14 12:00] VITALS: BP 125/74; PULSE 80; RESP 17; TEMP 36.5; O2SAT 95
--- NOTE | 2021-08-14 13:13 | P.DS_ITS ---
Discharge Providers Date of Admission: 08/13/21 05:44 Date of Discharge: August 14, 2021 Attending Provider at Admission: Diamond Zepeda MD Attending Provider at Discharge: Leo Martinez MD Primary Care Provider: Blake Bourgeois MD Diagnoses at Discharge Discharge Diagnosis (1) Chest pain: Status: Acute Reason for Visit Reason for Visit: Sob Chest Pain Hospital Course Hospital Course Katya presented to the hospital with chest discomfort. This was somewhat atypical and had a pleuritic quality to it. Her troponin was negative. EKG demonstrated no significant acute changes. She was placed in the hospital under observation for serial troponins, and nuclear stress testing. A D-dimer was obtained secondary to the pleuritic quality of her pain which was slightly elevated. Venous duplex and CTA were obtained which demonstrated no DVT and no pulmonary embolism. A left upper pole renal lesion was noted that will need outpatient follow-up with ultrasound. Echocardiogram was also performed which demonstrated preserved EF, grade 1/4 diastolic dysfunction, mild mitral valve regurgitation, aortic sclerosis. Nuclear stress test demonstrated some attenuation artifacts, normal EF, no significant coronary ischemia. As she has had no chest discomfort since admission it was thought she could go home and follow-up with her primary care provider. An outpatient ultrasound regarding her kidney abnormality will need to be arranged. I discussed this with her primary care provider. Physical Exam Narrative: EXAM NARRATIVE: General exam no distress Neck is supple Cardiovascular regular rate and rhythm Lungs clear Abdomen is soft, positive bowel sounds Extremities no cyanosis clubbing or edema Discharge Data Data Completed and Pending: Completed Studies During Hospitalization Category Date Time Status CT angio chest PE protcl [id number] Rout ine Cat Scan 08/13/21 10:33 Completed Sestamibi Stress Test Request Routi ne Exams 08/13/21 08:51 Draft XR chest 1V casey ble [id number] Urgent Exams 08/13/21 02:18 Completed NM wade perf SPECT r/s* [id number] Routin e Nuc Med 08/14/21 08:53 [place] [id number] Routin e Ultrasound 08/13/21 10:35 Completed CV. echo complete * [id number] Routine Ultrasound 08/13/21 08:51 Completed Labs from last 24 hours 08/14/21 08/14/21 04:49 04:49 WBC 8.2 RBC 5.06 Hgb 13.6 Hct 42.8 MCV 84.6 MCH 26.9 L MCHC 31.8 D RDW 12.7 Plt Count 324 MPV 10.0 Neut % (Auto) 83.2 Lymph % (Auto) 8.2 [place] % (Auto) 5.5 Eos % (Auto) 2.2 Baso % (Auto) 0.5 Neut # (Auto) 6.81 Lymph # (Auto) 0.7 L [place] # (Auto) 0.5 Eos # (Auto) 0.2 Baso # (Auto) 0.0 Nucleated RBC % (a uto) 0 Nucleated RBCs # 0.0 Sodium 139 Potassium 4.0 Chloride 104 Carbon Dioxide 22 Anion Gap 17.0 BUN 15 Creatinine 0.5 GFR Calculation Not Reportable Glucose 119 H Calculated Osmolal ity 290 Calcium 8.4 L Vitals: Last Vital Signs Temp 97.7 F 08/14/21 12:00 Pulse 80 08/14/21 12:00 Resp 17 08/14/21 12:00 BP 125/74 08/14/21 12:00 Pulse Ox 95 08/14/21 12:00 Discharge Plan Discharge Patient Disposition: Home Condition: Stable Prescriptions: Continued multivitamin Tablet 1 tab PO DAILY RF: 0 garlic 100 mg Tablet 100 mg PO DAILY RF: 0 ascorbic acid (vitamin C) [Vitamin C] 250 mg Tablet 250 mg PO DAILY RF: 0 zjyjxag-bhnfojtcu-wpmr 333-133-5 mg Tablet 1 tab PO DAILY RF: 0 cholecalciferol (vitamin D3) [Vitamin D3] 25 mcg (1,000 unit) Tablet,Chewable 25 mcg PO DAILY RF: 0 Red Rice Yeast 1 tab PO DAILY RF: 0 flaxseed oil 1,000 mg Capsule 1,000 mg PO DAILY RF: 0 Discharge Orders: Discharge Order (Routine); Ordered 08/14/21 Ordered By: Leo Martinez Referrals: Blake Bourgeois MD [Primary Care Provider] - 08/19/21 10:40 am Discharge Activity: Increase activity as tolerated Patient Instructions: Opioid Safety Activity Restrictions/Additional Instructions: Return for any concerns Discharge Attestations Time Spent in Discharge Care*: greater than 30 min Quality Metrics Clinical Quality Measures During this hospital stay, did patient experience: None Coding Level of Care Code Acute Chg FW DC note Diagnoses Chest pain R07.9
--- NOTE | 2021-08-14 14:09 | PC.NURSE ---
PT HAS DONE WELL FOR ME TODAY. SHE HAS NOT HAD ANY COMPLAINTS OF PAIN. SHE IS UP AND AMBULATING. DISCHARGE PAPERWORK GONE OVER WITH PT. ALL QUESTIONS ANSWERED. IV REMOVED BY STUDENT NURSE. PT TOLERATED WELL. PT SAFELY WHEELED OUT BY AID.
[2021-08-14 14:12] VITALS: BP 125/74; PULSE 80; RESP 17; TEMP 36.5; O2SAT 95
== END 2021-08-14 14:13 | disposition home or self-care (01) ==
LOC: ER 05:44 → MEDSURG 12:07
PROVIDERS: Admitting Provider Student in an Organized Health Care Education/Training Program; Emergency Provider Emergency Medicine; PCP Family Medicine; Visit Provider Internal Medicine
DX: R07.9 Chest pain, unspecified (principal); E78.5 Hyperlipidemia, unspecified; R79.1 Abnormal coagulation profile; N28.9 Disorder of kidney and ureter, unspecified; Z82.49 Family history of ischemic heart disease and other diseases of the circulatory system
CPT/HCPCS: 36415; 71045; 71275; 78452; 80048; 83880; 84443; 84484; 85025; 85378; 93005; 93017; 93306; 93970; 96372; 96374; 99285; A9500; G0378; J1650; J2405; J2785; Q9967

== ENCOUNTER 2021-10-18 12:30 | Outpatient (CLI) | payer MEDICARE, SELFPAY ==
--- NOTE | 2021-10-18 12:45 | US_ITS ---
WS: [id number] RENAL ULTRASOUND HISTORY: L RENAL CYST COMPARISON: CT 08/13/2021 TECHNIQUE: 2-D and color Doppler imaging of the kidney submitted. Right kidney: 9.7 cm x 6.3 cm x 5.6 cm. Normal echogenicity with no hydronephrosis or mass. Left kidney: 11.3 cm x 6.4 cm x 6.1 cm. Normal size LEFT kidney. There is a hyperechoic mass in the mid kidney measuring 2.7 x 3.0 x 2.3 cm w hich corresponds to the solid mass seen on a recent CT. On the CT there was no macroscopic fat identi fied. Therefore this is not likely angiomyolipoma. Renal cell carcinoma should be considered. Aorta: Normal. Urinary Bladder: Minimally distended. US/US renal BI* [id number] IMPRESSION: 1. No hydronephrosis. 2. Echogenic solid mass in the mid LEFT kidney measures 2.7 x 3.0 x 2.3 cm. Fa t was not identified on the recent CT. Therefore renal cell carcinoma needs to be considered and excluded. Follow-up with urology recommended.
== END 2021-10-18 12:31 | disposition home or self-care (01) ==
PROVIDERS: PCP Family Medicine; Visit Provider Family Medicine
DX: N28.1 Cyst of kidney, acquired (principal); N28.89 Other specified disorders of kidney and ureter
CPT/HCPCS: 76770

== ENCOUNTER → 2021-11-15 10:49 | Outpatient (BNVA) | payer MEDICARE, SELFPAY | PROVIDERS: PCP Family Medicine; Visit Provider Urology | DX: N28.89 Other specified disorders of kidney and ureter (principal) | CPT/HCPCS: 81003 ==

== ENCOUNTER → 2022-04-18 08:46 | Outpatient (BNVA) | payer MEDICARE, SELFPAY | PROVIDERS: PCP Family Medicine; Visit Provider Family Medicine | DX: Z00.00 Encounter for general adult medical examination without abnormal findings (principal); E78.5 Hyperlipidemia, unspecified; Z90.5 Acquired absence of kidney; R73.09 Other abnormal glucose | CPT/HCPCS: 80053; 80061; 83036; 85025 ==

== ENCOUNTER 2023-02-05 06:50 | Emergency (ER) | payer MEDICARE, SELFPAY ==
[2023-02-05] VITALS (16 sets, daily range): BP systolic 123–181; BP diastolic 64–97; PULSE 68–82; RESP 8–22; TEMP 36.6; O2SAT 94–97; BMI 26.6
--- NOTE | 2023-02-05 07:26 | CTR_ITS ---
PROCEDURE INFORMATION: Exam: CT Head Without Contrast Exam date and time: 02/05/2023 7:39 AM Age: 72 years old Clinical indication: Pain; Headache; Additional info: New onset headache TECHNIQUE: Imaging protocol: Computed tomography of the head without contrast. Radiation optimization: All CT scans at this facility use at least one of these dose optimization techniques: automated exposure control; mA and/or kV adjustment per patient size (includes targeted exams where dose is matched to clinical indication); or iterative reconstruction. REPORTING DATA: Count of CT and Cardiac NM exams in prior 12 months: This patient has received 0 known CTs and 0 known cardiac nuclear medicine studies in the 12 months prior to the current study. COMPARISON: No relevant prior studies available. RADIATION DOSE METRICS: Total DLP (mGy-cm): 970.08 FINDINGS: Brain: Small chronic lacunar infarct in left external capsule. Mild lucency in white matter compatible with microvascular change. There is no acute intracranial hemorrhage. No extra-axial fluid collection. No evidence of acute infarct. Cifuentes white differentiation is intact. There is no evidence of mass. There is no mass effect or midline shift. Cerebral ventricles: No ventriculomegaly. Paranasal sinuses: Visualized sinuses are unremarkable. No fluid levels. Mastoid air cells: No significant mastoid effusion. Bones/joints: No acute fracture. Soft tissues: Unremarkable as visualized. CT/CT head wo con* [id number] IMPRESSION: No evidence of acute intracranial abnormality. No acute hemorrhage. No evidence of acute infarct or mass.
--- NOTE | 2023-02-05 07:26 | ECG_ITS ---
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 Measurements Intervals [place] Rate: 74 P: 58 SD: 167 QRS: -18 QRSD: 96 T: 68 QT: 387 QTc: 431 Interpretive Statements SINUS RHYTHM POSSIBLE LEFT ATRIAL ENLARGEMENT [-0.1mV P-WAVE IN V1/V2] LOW QRS VOLTAGE IN PRECORDIAL LEADS [QRS DEFLECTION < 1.0 mV IN CHEST LEADS] PATTERN CONSISTENT WITH PULMONARY DISEASE INCOMPLETE RIGHT BUNDLE BRANCH BLOCK [90+ ms QRS DURATION, TERMINAL R IN V1/V2, 40+ ms S IN I/aVL/V4/V5/V6] Compared to ECG 08/13/2021 02:15:29 Low QRS voltage now present Incomplete right bundle-branch block now present T-wave abnormality no longer present Electronically Signed On 02-05-2023 14:01:41 CDT by Fernando Payne M.D. [email or web address]
--- NOTE | 2023-02-05 07:27 | ED_ITS ---
HPI - Headache General: Chief Complaint: Headache Stated Complaint: headache Time Seen by Provider: 02/05/23 07:06 Source: patient Mode of arrival: ambulatory History of Present Illness: 72-year-old female presents emergency room complaining of headache she isolates a headache to the left temporal area. She has no vision changes. Blood pressure is mildly elevated she has had problems with headache in the past some mildly slight light-sensitive no nausea or vomiting denies chest pain. No abdominal pain. No recent falls or trauma. MD elicited complaint: headache Onset (ago): day(s) (1) Onset description: gradually and while at rest Location: left Severity: moderate Quality & Timing: throbbing Exacerbating factors: none Relieving factors: nothing Associated symptoms: Deny chest pain, confusion, cough, diaphoresis, eye pain, eye redness, fever(s), lightheadedness, loss of vision, malaise, nausea, neck stiffness, numbness, paresthesias, photophobia, pre-syncope, rash, seizures, short of breath, sound sensitivity, syncope, vomiting or weakness Treatments prior to arrival: none Review of Systems Const: Denies: fever(s), chills, fatigue, malaise or diaphoresis ENMT: Denies: throat pain, ear or mastoid pain, nasal discharge or nasal congestion Card: Denies: chest pain, lightheadedness, syncope or pre-syncope Resp: Denies: dyspnea, productive cough or non-productive cough GI: Denies: abdominal pain, nausea or vomiting : Denies: flank pain, difficulty voiding, dysuria, urinary frequency or urinary urgency Skin/Breast: Denies: rash or pruritus Neuro: Denies: confusion PFS ED PFSH: Medical History Hyperlipidemia Left renal mass Surgical History History of nephrectomy 10/03/[address] Chavez - Suspicious growth - benign Family History Father , AT AGE 95 Pacemaker Mother , AT AGE 85 Alzheimer's dementia Other CAD (coronary artery disease) Dementia Social History Smoking and tobacco status: never smoked Alcohol intake: never Substance/Drug Use: never Marital status: / Current occupational status: employed and retired Physical Exam Const: GENERAL APPEARANCE: cooperative and comfortable ORIENTATION/CONSCIOUSNESS: Yes awake, Yes oriented to person, Yes oriented to place and Yes oriented to time HENMT: COMMON NORMALS: normocephalic, atraumatic and hearing grossly normal bilaterally HEAD & SCALP: normocephalic and atraumatic OTHER: No pain with palpation over either zoroastrianism artery. Eye: DIRECT OPHTHALMOSCOPY: No photophobia Resp: COMMON NORMALS: normal respiratory effort, No retractions, No use of accessory muscles and clear to auscultation bilaterally AUSCULTATION: clear to auscultation bilaterally Cardio: COMMON NORMALS: regular rate, regular rhythm and No murmurs present (Cardio) RATE: regular rate RHYTHM: regular rhythm GI: COMMON NORMALS: Soft to palpation and No hepatosplenomegaly present AUSCULTATION: Yes normoactive bowel sounds PALPATION: Yes Soft to palpation, No Tenderness to palpation present (GI), No Guarding due to palpation present (GI) and Yes No hepatosplenomegaly present Extremity: COMMON NORMALS: normal to inspection, capillary refill normal, no clubbing, cyanosis or edema, no calf tenderness and no pedal edema Neuro: SENSORIUM/ORIENTATION: Yes oriented to person, Yes oriented to place and Yes oriented to time Skin: COMMON NORMALS: no rashes or lesions noted GENERAL SKIN EXAM: no rashes or lesions noted Course Vital Signs: Vital signs: Vital Signs Temperature 97.8 F 02/05/23 07:18 Pulse Rate 76 02/05/23 09:45 Respiratory Rate 17 02/05/23 09:45 Blood Pressure 138/74 02/05/23 11:03 Pulse Oximetry 96 02/05/23 11:03 Oxygen Delivery Me thod Room Air 02/05/23 07:18 MDM - Headache Medical Decision Making Headache improved with medications. We will discharge patient home. Sed rate was 4. I do not believe she has temporal arteritis she has no visual changes. Blood pressure still mildly elevated encouraged her to follow-up with her primary care doctor regarding this. If she has worsening or changes symptoms return to the emergency room Medical Records I reviewed the patient's medical records. Lab Data I reviewed the patient's lab results. 02/05/23 07:33 02/05/23 07:[address] 02/05/23 07:26 IMPRESSION: No evidence of acute intracranial abnormality. No acute hemorrhage. No evidence of acute infarct or mass. Laboratory Results WBC 5.2 10^3/uL (4.0-10.0) 02/05/23 07:33 RBC 4.94 10^6/uL (4.1-5.3) 02/05/23 07:33 Hgb 13.3 g/dL (11.5-15.3) 02/05/23 07:33 Hct 42.1 % (37.0-47.0) 02/05/23 07:33 MCV 85.2 fl (81-99) 02/05/23 07:33 MCH 26.9 pg (28.0-34.0) L 02/05/23 07:33 MCHC 31.6 g/dL (30.0-36.0) 02/05/23 07:33 RDW 12.8 % (12.1-15.1) 02/05/23 07:33 Plt Count 314 10^3/cmm (130-400) 02/05/23 07:33 MPV 9.8 fL (7.4-10.4) 02/05/23 07:33 Neut % (Auto) 73.6 % 02/05/23 07:33 Lymph % (Auto) 15.3 % 02/05/23 07:33 [place] % (Auto) 7.4 % 02/05/23 07:33 Eos % (Auto) 2.3 % 02/05/23 07:33 Baso % (Auto) 1.2 % 02/05/23 07:33 Neut # (Auto) 3.80 10^3/uL (1.8-7.7) 02/05/23 07:33 Lymph # (Auto) 0.8 10^3/uL (0.8-4.8) 02/05/23 07:33 [place] # (Auto) 0.4 10^3/uL (0.2-0.9) 02/05/23 07:33 Eos # (Auto) 0.1 10^3/uL (0.0-0.8) 02/05/23 07:33 Baso # (Auto) 0.1 10^3/uL (0.0-0.1) 02/05/23 07:33 Nucleated RBC % (auto) 0 % 02/05/23 07:33 Nucleated RBCs # 0.0 /100WBC 02/05/23 07:33 ESR 4 mm/hr (0-15) 02/05/23 07:33 Sodium 139 mmol/L (136-145) 02/05/23 07:33 Potassium 4.4 mmol/L (3.5-5.1) 02/05/23 07:33 Chloride 103 mmol/L (98-107) 02/05/23 07:33 Carbon Dioxide 26 mmol/L (22-29) 02/05/23 07:33 Anion Gap 14.4 (5-19) 02/05/23 07:33 BUN 24 mg/dL (8-23) H 02/05/23 07:33 Creatinine 1.0 mg/dL (0.5-0.9) H 02/05/23 07:33 GFR Calculation Not Reportable 02/05/23 07:33 Glucose 102 mg/dL (65-115) 02/05/23 07:33 Calculated Osmolality 292 mOsm/kg (285-295) 02/05/23 07:33 Calcium 9.0 mg/dL (8.5-10.5) 02/05/23 07:33 Total Bilirubin 0.4 mg/dL (0.15-1.2) 02/05/23 07:33 AST 15 U/L (0-32) 02/05/23 07:33 ALT 16 U/L (0-33) 02/05/23 07:33 Alkaline Phosphatase 78 U/L (35-105) 02/05/23 07:33 Total Protein 6.5 g/dL (6.6-8.7) L 02/05/23 07:33 Albumin 4.3 g/dL (3.5-5.2) 02/05/23 07:33 Globulin 2.2 g/dL (1.3-4.6) 02/05/23 07:33 Discharge Plan Discharge Patient Disposition: Home Clinical Impression: Headache Condition: Stable Prescriptions: No Action multivitamin Tablet 1 tab PO DAILY garlic 100 mg Tablet 100 mg PO DAILY Rx Instructions: TAKE IN THE EVENING. ascorbic acid (vitamin C) [Vitamin C] 250 mg Tablet 250 mg PO DAILY Rx Instructions: TAKE IN THE EVENING wjzculf-gvgtjezgr-qvlc 333-133-5 mg Tablet 1 tab PO BID cholecalciferol (vitamin D3) [Vitamin D3] 25 mcg (1,000 unit) Tablet,Chewable 25 mcg PO DAILY Red Rice Yeast 1 tab PO DAILY flaxseed oil 1,000 mg Capsule 1,000 mg PO DAILY iodine 150 mcg Tablet 150 mcg PO EVERY OTHER DAY Discharge Orders: Discharge ED (Routine); Ordered 02/05/23 Ordered By: Kike Garner Referrals: Blake Bourgeois MD [Primary Care Provider] - Patient Instructions: Opioid Safety, Pain Management Activity Restrictions/Additional Instructions: You were seen today with a headache. Coding Level of Care Code ED [employer] [facility]
[2023-02-05 07:56] LABS: Alanine Aminotransferase 16 U/L (0-33); Albumin Level 4.3 g/dL (3.5-5.2); Alkaline Phosphatase 78 U/L (35-105); Anion Gap 14.4 (5-19); Aspartate Amino Transferase 15 U/L (0-32); Blood Urea Nitrogen 24 mg/dL (8-23); Carbon Dioxide 26 mmol/L (22-29); Chloride 103 mmol/L (98-107); Globulin 2.2 g/dL (1.3-4.6); Glucose 102 mg/dL (65-115); Osmolality Calculated 292 mOsm/kg (285-295); Potassium 4.4 mmol/L (3.5-5.1); Sodium 139 mmol/L (136-145); Total Bilirubin 0.4 mg/dL (0.15-1.2); Total Protein 6.5 g/dL (6.6-8.7)
[2023-02-05] MEDS: ketorolac 30 mg/mL INJ IVP (08:04)
[2023-02-05] MEDS: promethazine 25 mg/mL SDV 1 mL IM (08:05)
[2023-02-05] MEDS: labetalol 5 mg/mL SDV 20mL 10 MG IVP (08:09)
[2023-02-05 08:13] LABS: Basophils # 0.1 10^3/uL (0.0-0.1); Basophils % 1.2 %; Eosinophils # 0.1 10^3/uL (0.0-0.8); Eosinophils % 2.3 %; Hematocrit 42.1 % (37.0-47.0); Hemoglobin 13.3 g/dL (11.5-15.3); Lymphocytes # 0.8 10^3/uL (0.8-4.8); Lymphocytes % 15.3 %; Mean Corpuscular HGB Conc 31.6 g/dL (30.0-36.0); Mean Corpuscular Hemoglobin 26.9 pg (28.0-34.0); Mean Corpuscular Volume 85.2 fl (81-99); Mean Platelet Volume 9.8 fL (7.4-10.4); Monocytes # 0.4 10^3/uL (0.2-0.9); Monocytes % 7.4 %; Neutrophils % 73.6 %; Nucleated Red Blood Cells % 0 %; Platelet Count 314 10^3/cmm (130-400); Red Blood Count 4.94 10^6/uL (4.1-5.3); Red Cell Distribution Width 12.8 % (12.1-15.1); White Blood Count 5.2 10^3/uL (4.0-10.0)
[2023-02-05 10:54] LABS: Erythrocyte Sedimentation Rate 4 mm/hr (0-15)
== END 2023-02-05 11:35 | disposition home or self-care (01) ==
PROVIDERS: Emergency Provider Family Medicine; PCP Family Medicine
DX: R51.9 Headache, unspecified (principal); E78.5 Hyperlipidemia, unspecified
CPT/HCPCS: 36415; 70450; 80053; 85025; 85651; 93005; 96372; 96374; 96375; 99285; J1885; J2550; J3490

== ENCOUNTER → 2023-07-20 15:36 | Outpatient (BNVA) | payer MEDICARE, SELFPAY | PROVIDERS: PCP Family Medicine; Visit Provider Family Medicine | DX: Z00.00 Encounter for general adult medical examination without abnormal findings (principal); Z51.81 Encounter for therapeutic drug level monitoring; E78.5 Hyperlipidemia, unspecified; R73.03 Prediabetes; Z13.220 Encounter for screening for lipoid disorders; R73.09 Other abnormal glucose; R03.0 Elevated blood-pressure reading, without diagnosis of hypertension | CPT/HCPCS: 80053; 80061; 83036; 85025; 87491; 87591 ==

== ENCOUNTER 2023-08-13 15:10 | Outpatient (CLI) | payer MEDICARE, SELFPAY ==
--- NOTE | 2023-08-13 15:34 | MM_ITS ---
WS: [id number] VIEWS: MLO and CC views both breasts. 3D digital tomosynthesis is also included in this exam. Comparison made with prior exam of 12/29/2018, 05/02/2020, 05/03/2021.. Findings: There was no sign of mass, architectural distortion or suspicious calcification in either breast. Sta ble appearing subcentimeter nodule in the lateral RIGHT breast at mid depth level there are scattered areas of fibroglandular density Impression: MM/[place] [id number] BI-RADS: 2-Benign finding. FOLLOW-UP: 1 Year Follow-up This mammogram was also analyzed by the Computer Aided Detection System R2 Imag e Senior Statistician.
== END 2023-08-13 15:11 | disposition home or self-care (01) ==
LOC: RAD 15:11
PROVIDERS: PCP Family Medicine; Visit Provider Family Medicine
DX: Z12.31 Encounter for screening mammogram for malignant neoplasm of breast (principal)
CPT/HCPCS: 77063; 77067

== ENCOUNTER → 2024-07-27 10:29 | Outpatient (BNVA) | payer MEDICARE, SELFPAY | PROVIDERS: PCP Family Medicine; Visit Provider Family Medicine | DX: Z51.81 Encounter for therapeutic drug level monitoring (principal); Z13.220 Encounter for screening for lipoid disorders; E55.9 Vitamin D deficiency, unspecified; R73.03 Prediabetes; E78.5 Hyperlipidemia, unspecified | CPT/HCPCS: 80053; 80061; 82306; 83036; 85025 ==

== ENCOUNTER 2024-08-15 09:22 | Outpatient (CLI) | payer MEDICARE, SELFPAY ==
--- NOTE | 2024-08-15 09:30 | MM_ITS ---
WS: [id number] VIEWS: MLO and CC views both breasts. 3D digital tomosynthesis is also included in this exam. Comparison made with prior exam of 12/29/2018, 05/02/2020, 05/03/2021, 08/13/2023,. Findings: There are scattered areas of fibroglandular density. Stable appearing small nodule in the mid RIGHT breast slightly lateral and inferior to the nipple. No new finding in either breast. MM/MM scr BI tomosynthesis [id number] Impression: BI-RADS: 2 - Benign. FOLLOW-UP: 1 Year Follow-up This mammogram was also analyzed by the Computer Aided Detection System R2 Imag e Clinical Laboratory Technician.
== END 2024-08-15 09:23 | disposition home or self-care (01) ==
LOC: RAD 09:22
PROVIDERS: PCP Family Medicine; Visit Provider Family Medicine
DX: Z12.31 Encounter for screening mammogram for malignant neoplasm of breast (principal); N63.12 Unspecified lump in the right breast, upper inner quadrant
CPT/HCPCS: 77063; 77067

== ENCOUNTER → 2025-08-01 10:56 | Outpatient (BNVA) | payer MEDICARE, SELFPAY | PROVIDERS: PCP Family Medicine; Visit Provider Family Medicine | DX: Z51.81 Encounter for therapeutic drug level monitoring (principal); R73.03 Prediabetes; Z13.6 Encounter for screening for cardiovascular disorders | CPT/HCPCS: 80053; 80061; 83036; 85025 ==

== ENCOUNTER 2025-08-16 10:35 | Outpatient (CLI) | payer MEDICARE, SELFPAY ==
--- NOTE | 2025-08-16 10:40 | MM_ITS ---
WS: [id number] BILATERAL 3D TOMOSYNTHESIS DIGITAL SCREENING MAMMOGRAPHY WITH CAD CLINICAL INFORMATION: Screening HISTORY: Screening mammogram. No current complaints. COMPARISON: 2023 TECHNIQUE: Bilateral CC and MLO views. FINDINGS: Scattered fibroglandular densities bilaterally. No suspicious focal mass, asymmetry, calcifications, or architectural distortion. No evidence of malignancy. MM/MM scr BI tomosynthesis [id number] IMPRESSION: DENSITY: There are scattered areas of fibroglandular density. BI-RADS: 1 - Negative. FOLLOW UP: 1 Year Follow-up Recommend return to annual screening mammography.
== END 2025-08-16 10:36 | disposition home or self-care (01) ==
LOC: RAD 10:37
PROVIDERS: PCP Family Medicine; Visit Provider Family Medicine
DX: Z12.31 Encounter for screening mammogram for malignant neoplasm of breast (principal); R92.323 Mammographic fibroglandular density, bilateral breasts
CPT/HCPCS: 77063; 77067